=== PATIENT | female | born 1960 | race Hispanic/Latino ===

== ENCOUNTER → 2020-11-02 | Outpatient (CLI) | payer OTHER ==
[~2020-11-02] MED LIST: GLIMEPIRIDE2 MG PO; LEVOTHYROXINE112 MCG PO; LOSARTAN POTASS25 MG PO; LOVASTATIN40 MG PO; OMEPRAZOLE40 MG PO
== END ==
LOC: RAD 13:24
PROVIDERS: ATTEND Internal Medicine Cardiovascular Disease
DX: E11.9 Type 2 diabetes mellitus without complications (principal); I10 Essential (primary) hypertension; I35.0 Nonrheumatic aortic (valve) stenosis
CPT/HCPCS: 71046; 93306